=== PATIENT | female | born 1975 | race Caucasian/White ===

== ENCOUNTER → 2017-01-06 | Outpatient (CLI) | payer BC ==
--- NOTE | 2017-01-06 15:21 | Diagnostic Imaging Report ---
EXAM: Transabdominal and transvaginal pelvic ultrasound. INDICATION: Menorrhagia. FINDINGS: The uterus is 7.9 x 4.4 x 4.5 cm. The endometrial stripe is 0.9 cm in thickness. No focal myometrial lesion is seen. There is thickening in the endocervix and thickened lining of a presumable nabothian cyst projecting into the endocervical lumen. No significant internal vascularity in the region is seen along the cervix.. There is also a small amount of fluid within the endocervix. The right ovary is 3.6 x 2.7 x 2.8 cm. Dominant follicle is seen. Normal vascularity with arterial and venous waveforms demonstrated. The left ovary is not seen, probably obscured by the bowel gas. IMPRESSION: There is fluid in the endocervix. There is a cystic area with thickened lining potentially representing nabothian cyst in the upper aspect of the cervix that appears to project into the endocervix. A focal mucosal lesion such as a polyp however is possible. Gynecologic evaluation is recommended. Report faxed to JAMIA Aiken, at 4:25 p.m. 01/06/2017/tay Dictated by: Dictated on workstation # [id number]
--- NOTE | 2017-01-07 11:52 | Diagnostic Imaging Report ---
EXAM: Bilateral screening mammogram 2D views with tomosynthesis The current study was also evaluated with a Computer Aided Detection (CAD) system. INDICATION: Screening. No current complaints stated on the questionnaire. COMPARISON: None. This is a baseline study. FINDINGS: The breasts are composed of heterogeneously dense parenchyma which may decrease mammographic sensitivity. There is no mass, architectural distortion or suspicious calcification identified. IMPRESSION: Dense breasts with no focal abnormality identified. Annual screening mammogram is recommended. BI-RADS 2. ACR BI-RADS Category 2: Benign findings. Result letter will be mailed to the patient. Note: At least 10% of breast cancer is not imaged by mammography. Dictated by: Dictated on workstation # [id number]
== END ==
LOC: RAD 12:44
PROVIDERS: ATTEND Nurse Practitioner
DX: N88.8 Other specified noninflammatory disorders of cervix uteri (principal); Z12.31 Encounter for screening mammogram for malignant neoplasm of breast
CPT/HCPCS: 76830; 76856; 77067

== ENCOUNTER → 2019-05-23 | Outpatient (CLI) | payer BC ==
[2019-05-23 11:14] LABS: BILIRUBIN,URINE NEGATIVE (NEGATIVE); CLARITY,URINE SL CLOUDY; COLOR,URINE YELLOW; GLUCOSE, URINE (UA) NEGATIVE (NEGATIVE); KETONES,URINE NEGATIVE (NEGATIVE); LEUKOCYTE ESTERASE ,URINE NEGATIVE (NEGATIVE); NITRITE,URINE NEGATIVE (NEGATIVE); PROTEIN,URINE NEGATIVE (NEGATIVE)
[2019-05-23 11:22] LABS: BACTERIA,URINE MODERATE /HPF
--- NOTE | 2019-05-23 15:48 | Diagnostic Imaging Report ---
EXAMINATION: US Retroperitoneal Complete. TECHNIQUE: Multiple real-time grayscale images were obtained over the kidneys in various projections bilaterally. HISTORY: LEFT KIDNEY PAIN COMPARISON: None available. FINDINGS: The right kidney is normal in size measuring 9.5 x 4.6 x 4.3 cm. The echogenicity is normal. There is no hydronephrosis. No stones are seen. No suspicious lesions. The left kidney is normal in size measuring 9.3 x 4.7 x 5.6 cm. The echogenicity is normal. There is no hydronephrosis. No stones are seen. No suspicious lesions. The urinary bladder is normal. Bilateral ureteral jets are seen. IMPRESSION: 1. Normal kidneys without hydronephrosis. Dictated by: Dictated on workstation # [id number]
== END ==
LOC: RAD 10:17
PROVIDERS: ATTEND Family Medicine
DX: N20.0 Calculus of kidney (principal)
CPT/HCPCS: 76770; 81000; 87077; 87088

== ENCOUNTER → 2020-07-22 | Outpatient (CLI) | payer BC ==
--- NOTE | 2020-07-22 11:41 | Diagnostic Imaging Report ---
INDICATION: Routine screening. COMPARISON: 01/06/2017. TECHNIQUE: 2D and 3D bilateral screening mammography was performed with CAD. FINDINGS: Both breasts are heterogeneously dense, limiting the sensitivity of mammography. The parenchymal pattern is stable. No mass or malignant appearing microcalcifications are seen. The axillae are unremarkable. IMPRESSION: No mammographic features suspicious for malignancy are identified. ACR BI-RADS Category 1: Negative. Result letter will be mailed to the patient. Note: At least 10% of breast cancer is not imaged by mammography. Dictated by: Dictated on workstation # [id number]
== END ==
LOC: RAD 09:16
PROVIDERS: ATTEND Family Medicine
DX: Z12.31 Encounter for screening mammogram for malignant neoplasm of breast (principal)
CPT/HCPCS: 77063; 77067

== ENCOUNTER → 2020-09-26 | Outpatient (CLI) | payer BC ==
--- NOTE | 2020-09-26 08:43 | Diagnostic Imaging Report ---
PROCEDURE: MRI lumbar spine. TECHNIQUE: Multiplanar, multisequence MRI of the lumbar spine was performed without contrast. INDICATION: Right-sided back pain. L3 fracture on outside radiographs. COMPARISON: None available. FINDINGS: There are 5 lumbar-type vertebral bodies for the purposes of this report. Grade 1 anterolisthesis of L3 on L4. Vertebral body heights preserved. Chronic bilateral L3 pars defects. No acute fractures. No abnormal signal in the conus which terminates at L1-L2. Normal morphology of the cauda equina. The visualized paravertebral soft tissues are unremarkable. L1-L2: Normal. L2-L3: Normal. L3-L4: The anterolisthesis mild facet arthropathy contribute to mild bilateral lateral recess and moderate bilateral neural foraminal narrowing. Small central disc extrusion with superior migration results in no significant spinal canal narrowing. L4-L5: Mild facet arthropathy. No spinal canal narrowing. Mild right neural foraminal narrowing. L5-S1: Mild facet arthropathy results in mild right lateral recess narrowing. Mild right neural foraminal narrowing. No spinal canal narrowing. IMPRESSION: 1. Grade 1 anterolisthesis with chronic bilateral L3 pars defects. There is also a small disc extrusion with superior migration at this level. 2. Scattered mild and moderate lateral recess and neural foraminal narrowing detailed above. No spinal canal stenosis. 3. No acute osseous findings. Dictated by: Dictated on workstation # [id number]
== END ==
LOC: RAD 07:36
PROVIDERS: ATTEND Orthopaedic Surgery Orthopaedic Surgery of the Spine
DX: M47.816 Spondylosis without myelopathy or radiculopathy, lumbar region (principal); M51.26 Other intervertebral disc displacement, lumbar region; M48.061 Spinal stenosis, lumbar region without neurogenic claudication; M43.16 Spondylolisthesis, lumbar region
CPT/HCPCS: 72148

== ENCOUNTER → 2022-11-29 | Outpatient (CLI) | payer BC ==
[2022-11-29] MEDS: CATHETER FLUSH 10 ML SYR IVP PRN ×2 (07:07→07:08)
[2022-11-29 08:08] VITALS: BP 180/94
--- NOTE | 2022-11-29 16:20 | Cardiology Stress Test Report ---
Stress Test Report Type of NM Stress Test: Test Type: NUCLEAR TREADMILL Date of Procedure/Referring: PCP Kristen Niño Dnp Admitting Physician Admitting Physician: Attending Physician: Kristen Niño Dnp Indications: Screening for cardiovascular conditions, hypertension Baseline Blood Pressure: Blood Pressure Systolic: 180 Blood Pressure Diastolic: 94 Summary & Conclusion: Summary: The patient was brought to the stress lab after informed consent was taken. Please review the stress test report of Dr. Niño. 10.72 mCi of Myoview were given for rest imaging and 28.6 mCi of Myoview given for stress imaging. Transient ischemic dilatation score 0.9 , EF 68 percent. Normal wall motion. Normal myocardial perfusion imaging during rest and stress. Conclusion: Normal LV function with no wall motion abnormalities. Normal myocardial perfusion imaging during rest and stress. Syed OCHOA MD Nov 29, 2022 16:20
== END ==
LOC: CARD 07:00
PROVIDERS: ATTEND Nurse Practitioner Family
DX: Z13.6 Encounter for screening for cardiovascular disorders (principal); R03.0 Elevated blood-pressure reading, without diagnosis of hypertension; I10 Essential (primary) hypertension
CPT/HCPCS: 78452; 93017

== ENCOUNTER → 2023-01-20 | Outpatient (CLI) | payer BC | LOC: CARD 07:50 | PROVIDERS: ATTEND Nurse Practitioner Family | DX: R00.2 Palpitations (principal) ==